=== PATIENT | male | born 1965 ===

== ENCOUNTER 2023-07-21 19:12 | Emergency (ER) | payer SELFPAY ==
[2023-07-21 19:17] VITALS: BP 124/83; PULSE 65; RESP 19; TEMP 36.9; O2SAT 97
--- NOTE | 2023-07-21 19:55 | ED.GENADUL_ITS ---
Discharge Plan Disposition Patient Disposition: Home Condition: Good Discharge Details Clinical Impression: Otitis externa ED Provider: Valeriano Reid Home Meds and New Rx's Prescriptions: No Action No Known Home Meds Discharge Instructions Instructions: Otitis Externa (ED) Discharge Data Discharge Physician: Valeriano Reid Medical Decision Making Patient presents emergency department stating that he thought he had a left ear with a bug but there is no abnormality just some irritation he probably did with Q-tip he was going to be given Cortisporin attic and will be discharged home HPI General Date/Time Provider Initiated Documentation: 07/21/23 19:52 . HPI Narrative: Patient presents to the emergency department stating that he thought he had a bug in his left ear. States that he has been like this for the last 3 weeks. Reports a buzzing sound when he plugs his ear he states Related Data Home Medications Medication Instructions Recorded Confirmed Unknown [No Known Home Meds] 07/21/23 07/21/23 Allergies Allergy/AdvReac Type Severity Reaction Status Date / Time No Known Allergies Allergy Unverified 07/21/23 19:17 General Stated Complaint: EarProblem GOPAL: 4 Review of Systems Narrative: Review of Systems: Constitutional: No fevers, chills, sweats Eye: No recent visual problems ENT: No ear pain, nasal congestion, sore throat Respiratory: No shortness of breath, cough Cardiovascular: No Chest pain, palpitations, syncope Gastrointestinal: No nausea, vomiting, diarrhea Genitourinary: No hematuria Marcos/Lymph: Negative for bruising tendency, swollen lymph glands Endocrine: Negative for excessive thirst, excessive hunger Musculoskeletal: No back pain, neck pain, joint pain, muscle pain, decreased range of motion Integumentary: No rash, pruritus, abrasions Neurologic: Alert & oriented X 4 Psychiatric: No anxiety, depression PFSH All Active Problems (Updated 07/21/23 @ 20:00 by Valeriano Reid MD) Otitis externa (Acute) Social History Smoking/Tobacco Use Status: Current every day Tobacco Type: cigarettes Smoking risk assessment performed?: Yes Alcohol Intake: current Alcohol Intake frequency: 3 or more drinks per day Alcohol type: beer Drug use: Daily Substance use type: marijuana Housing: apartment Do you feel safe at home: Yes Do you feel safe in your relationship?: Yes Exam Narrative Exam Narrative: Exam; vitals signs as reported above normal Constitutional; In no acute distress, afebrile General: cooperative, healthy appearing, comfortable and no acute distress HEENT: Head: normal to inspection, no palpable skull fracture and normocephalic atraumatic Eyes: : appearance normal, both eyes and all related structures EOM intact bilaterally Pupils: PERRL : conjunctiva normal Direct ophthalmoscopy: normal light reflex, normal conjunctiva, normal visual acuity Ears: Normal TM, normal external canal no abnormality to the left tympanic membrane no foreign body mild irritation of the TM but no signs of infection Nose: normal no rhinorreha Neck no JVD, supple non tender Neck: normal visual inspection, full ROM and no lymphadenopathy Chest: normal inspection of the chest Respiratory : normal respiratory effort and able to speak in complete sentences no wheezing no rales Cardio Rate: regular rate, rhythm: regular rhythm normal heart sounds S1 and S2 no murmurs, gallops, or rubs GI : normal to inspection, normal bowel sounds, soft, non tender, non distended, no organomegaly Back/Spine/ no CVA tenderness Thoracic/Lumbar Spine: no tenderness or deformities Skin no rashes or lesions Neuro: patient alert oriented x 4 and no meningeal signs, Cranial Nerves: CN's II-XI intact bilaterally, Cognition: normal cognition, Speech: speech normal, Gait: normal gait, Depp tendon reflexes normal 2+ muscle strength 5/5 bilaterally Extremities, no edema, full range of motion, normal strength : normal Rectal: Course Vital Signs Vital signs: Vital Signs Temperature 36.9 C 07/21/23 19:17 Pulse 65 07/21/23 19:17 Respiratory Rate 19 07/21/23 19:17 Blood Pressure 124/83 07/21/23 19:17 Pulse Oximetry 97 07/21/23 19:17 Temperature 36.9 C 07/21/23 19:17 Temperature Source Temporal Artery Scan 07/21/23 19:17 Pulse 65 07/21/23 19:17 Respiratory Rate 19 07/21/23 19:17 Respiratory Effort Normal, Non-Labored 07/21/23 19:20 Blood Pressure 124/83 07/21/23 19:17 Blood Pressure Position Supine 07/21/23 19:17 Pulse Oximetry 97 07/21/23 19:17 Oxygen Delivery Method Room Air 07/21/23 19:17 Oxygen Flow Rate 0 07/21/23 19:17 Pain Level 3 07/21/23 19:20 PAWSS Have you Been Recently Intoxicated or Drunk Within the Last 30 days?: No Have you Ever Experienced Previous Episodes of Alcohol Withdrawal?: No Have you ever Experienced Withdrawal Seizures?: No Have you ever Experienced Delirium Tremens(DT)s?: No Have you ever undergone Alcohol Rehabilitation Treatment (i.e, inpt ot outpatient treatment programs)?: No Have you ever Experienced Blackouts?: No Have you ever Combined Alcohol with other Downers within the last 90 days?: Yes Have you ever Combined Alcohol with any other Substance of Abuse during the last 90 days?: Yes Positive Blood Alcohol level on Presentation? [PCS.BAL]: No Evidence of Increased Autonomic Activity (i.e. HR>120, tremor, sweating, agitation, nausea)?: No Result: 2
== END 2023-07-21 20:04 | disposition home or self-care (01) ==
LOC: ER 20:34
PROVIDERS: Emergency Provider Emergency Medicine Emergency Medical Services
DX: H60.92 Unspecified otitis externa, left ear (principal)
CPT/HCPCS: 99283; 99284